=== PATIENT | male | born 1955 | race Caucasian/White ===

== ENCOUNTER 2017-09-07 07:35 | Day surgery (SDC) | payer MEDICAID ==
[2017-09-07 09:11] VITALS: BMI 23.6
[2017-09-07] MEDS ORDERED: Lactated Ringer's 500 ML IV ONE (09:13)
[2017-09-07] MEDS ORDERED: Propofol 10 mg/ml Inj (20 ML) ONE (11:57)
[2017-09-07 12:38] VITALS: TEMP 96.9
[2017-09-07 12:53] VITALS: BP 123/65; PULSE 58; RESP 12; O2SAT 100
== END 2017-09-07 12:55 | disposition home or self-care (01) ==
LOC: H.ENDO 07:35
PROVIDERS: ATTEND Internal Medicine Gastroenterology
DX: Z12.11 Encounter for screening for malignant neoplasm of colon (principal); I10 Essential (primary) hypertension; K64.8 Other hemorrhoids
CPT/HCPCS: 45378; 88305; J2704; J7120

== ENCOUNTER 2017-11-30 07:27 | Day surgery (SDC) | payer MEDICAID ==
[2017-11-30] MEDS ORDERED: Lactated Ringer's 1,000 ML IV ONE (07:41)
[2017-11-30 07:57] VITALS: TEMP 96.8
[2017-11-30] MEDS ORDERED: Propofol 10 mg/ml Inj (20 ML) ONE (08:19)
[2017-11-30] MEDS ORDERED: Midazolam 2 MG/2 ML VIAL ONE (08:19)
[2017-11-30 09:07] VITALS: BP 111/62; PULSE 73; RESP 19; O2SAT 99
== END 2017-11-30 09:13 | disposition home or self-care (01) ==
LOC: H.ENDO 07:27
PROVIDERS: ATTEND Internal Medicine Gastroenterology
DX: K25.9 Gastric ulcer, unspecified as acute or chronic, without hemorrhage or perforation (principal); K25.0 Acute gastric ulcer with hemorrhage; I10 Essential (primary) hypertension
CPT/HCPCS: 43235; J2250; J2704; J7120

== ENCOUNTER 2017-12-28 07:42 | Day surgery (SDC) | payer MEDICAID ==
[2017-12-28] MEDS ORDERED: Lactated Ringer's 1,000 ML IV ONE (08:10)
[2017-12-28 08:22] VITALS: O2SAT 99
[2017-12-28] MEDS ORDERED: Lidocaine 2% MPF (5 ml) Inj ONE (09:53)
[2017-12-28] MEDS ORDERED: Propofol 10 mg/ml Inj (20 ML) ONE (09:53)
[2017-12-28 10:16] VITALS: TEMP 97
[2017-12-28 10:30] VITALS: BP 110/63; PULSE 71; RESP 16
== END 2017-12-28 11:19 | disposition home or self-care (01) ==
LOC: H.ENDO 07:42
PROVIDERS: ATTEND Internal Medicine Gastroenterology
DX: K22.9 Disease of esophagus, unspecified (principal); K22.8 Other specified diseases of esophagus; K25.9 Gastric ulcer, unspecified as acute or chronic, without hemorrhage or perforation; I10 Essential (primary) hypertension
CPT/HCPCS: 43239; 88305; J2704; J7120

== ENCOUNTER 2018-03-01 07:08 | Day surgery (SDC) | payer MEDICAID ==
[2018-03-01 07:32] VITALS: BMI 30.5
[2018-03-01] MEDS ORDERED: Lactated Ringer's 500 ML IV ONE (07:35)
[2018-03-01 07:53] VITALS: TEMP 96.9
[2018-03-01] MEDS ORDERED: Lidocaine PF 2% (5 ml) Inj (For Cardiac Arrhy) IV ONE (08:17)
[2018-03-01] MEDS ORDERED: Propofol 10 mg/ml Inj (20 ML) ONE (08:17)
[2018-03-01 08:52] VITALS: BP 110/57; PULSE 59; RESP 16; O2SAT 99
== END 2018-03-01 09:13 | disposition home or self-care (01) ==
LOC: H.ENDO 07:08
PROVIDERS: ATTEND Internal Medicine Gastroenterology
DX: K25.7 Chronic gastric ulcer without hemorrhage or perforation (principal); I10 Essential (primary) hypertension; K29.70 Gastritis, unspecified, without bleeding; K31.7 Polyp of stomach and duodenum; K22.9 Disease of esophagus, unspecified; K27.9 Peptic ulcer, site unspecified, unspecified as acute or chronic, without hemorrhage or perforation
CPT/HCPCS: 43239; 88305; J2704; J7120